=== PATIENT | male | born 1960 | race African-American/Black ===

== ENCOUNTER → 2017-06-09 | Outpatient (CLI) | payer OTHER, BC ==
[~2017-06-09] MED LIST: ADDERALL XR10 MG PO; AMBIEN10 MG PO; CELEBREX100 MG PO; CEPHALEXIN500 M1 PO; CIPRO500 MG PO; COREG 6.256.25 MG/TA PO; COREG6.25 MG PO; ELAVIL25 MG PO; FARXIGA5 PO; FIORICET W/CODE1 CA1 PO; FORTAMET1000 MG PO; LANTUS100 U/ML SC; LEVITRA20 MG PO; LIORESAL 1010 MG/TAB PO; LIP PO; LISINOPRIL/HCTZ1 TA1 PO; LYRICA 75MG CAP75 MG PO; MAXALT MLT10 MG/TAB PO; METHOCARBAMOL500 MG PO; NEURONTIN300 MG PO; NORVASC 10MG10 MG PO; NOVOLOG 100U100 U/M1 SC; OMEGA-31000 MG PO; PERCOCET 325 MG1 TAB PO; PHENERGAN 25 TA25 MG PO; PRILOSEC 20MG20 MG PO; TOPAMAX25 MG PO; VITAMIN D2000 I1 PO; WELLBUTRIN SR150 M1 PO
== END ==
LOC: MHCPAIN 10:57
DX: G89.29 Other chronic pain (principal); M47.817 Spondylosis without myelopathy or radiculopathy, lumbosacral region; M53.3 Sacrococcygeal disorders, not elsewhere classified; M25.551 Pain in right hip; M25.552 Pain in left hip; G62.9 Polyneuropathy, unspecified
CPT/HCPCS: G0463

== ENCOUNTER → 2017-07-08 | Outpatient (CLI) | payer OTHER, BC | LOC: MHCPAIN 09:14 | DX: M47.817 Spondylosis without myelopathy or radiculopathy, lumbosacral region (principal); M46.96 Unspecified inflammatory spondylopathy, lumbar region | CPT/HCPCS: J1040; Q9967 ==

== ENCOUNTER → 2017-08-06 | Outpatient (CLI) | payer OTHER, BC | LOC: MHCPAIN 11:00 | DX: G89.29 Other chronic pain (principal); M47.817 Spondylosis without myelopathy or radiculopathy, lumbosacral region; M54.16 Radiculopathy, lumbar region; M53.3 Sacrococcygeal disorders, not elsewhere classified | CPT/HCPCS: G0463 ==

== ENCOUNTER → 2018-04-12 | Outpatient (CLI) | payer BC, OTHER | LOC: MHCPAIN 13:10 | DX: G89.29 Other chronic pain (principal); M47.817 Spondylosis without myelopathy or radiculopathy, lumbosacral region; M54.16 Radiculopathy, lumbar region; M53.3 Sacrococcygeal disorders, not elsewhere classified; M79.2 Neuralgia and neuritis, unspecified | CPT/HCPCS: G0463 ==

== ENCOUNTER → 2018-04-14 | Outpatient (CLI) | payer BC, OTHER | LOC: MHCPAIN 13:08 | DX: M47.817 Spondylosis without myelopathy or radiculopathy, lumbosacral region (principal); M54.16 Radiculopathy, lumbar region ==

== ENCOUNTER → 2018-04-27 | Outpatient (CLI) | payer BC, OTHER | LOC: MHCPAIN 08:16 | DX: G89.29 Other chronic pain (principal); M47.817 Spondylosis without myelopathy or radiculopathy, lumbosacral region; M53.3 Sacrococcygeal disorders, not elsewhere classified | CPT/HCPCS: G0463 ==

== ENCOUNTER → 2018-05-05 | Outpatient (CLI) | payer BC, OTHER | LOC: MHCPAIN 13:51 | DX: M47.817 Spondylosis without myelopathy or radiculopathy, lumbosacral region (principal); M54.16 Radiculopathy, lumbar region | CPT/HCPCS: J2250; J3010 ==

== ENCOUNTER → 2018-05-12 | Outpatient (CLI) | payer BC, OTHER | LOC: MHCPAIN 09:47 | DX: M47.817 Spondylosis without myelopathy or radiculopathy, lumbosacral region (principal); M54.16 Radiculopathy, lumbar region | CPT/HCPCS: J2250; J3010 ==

== ENCOUNTER → 2018-06-28 | Outpatient (CLI) | payer BC, OTHER | LOC: MHCPAIN 13:09 | DX: G89.29 Other chronic pain (principal); M47.817 Spondylosis without myelopathy or radiculopathy, lumbosacral region; M53.3 Sacrococcygeal disorders, not elsewhere classified | CPT/HCPCS: G0463 ==

== ENCOUNTER 2021-05-23 18:24 | Emergency (ER) | payer BC, OTHER ==
[~2021-05-23] VITALS: Ht 190.5 cm; Wt 95.5 kg
[2021-05-23 18:33] VITALS: TEMP 98.2
[2021-05-23] MEDS ORDERED: CEPHALEXIN500 M1 PO (18:53)
[2021-05-23 19:22] VITALS: BP 134/76; PULSE 80
== END 2021-05-23 19:22 | disposition home or self-care (01) ==
LOC: COL.ER 18:24
DX: T25.122A Burn of first degree of left foot, initial encounter (principal); X10.2XXA Contact with fats and cooking oils, initial encounter

== ENCOUNTER 2021-10-06 07:44 | Emergency (ER) | payer BC, OTHER ==
[~2021-10-06] VITALS: Ht 190.5 cm; Wt 95.5 kg
[2021-10-06 10:25] LABS: STREP SCREEN NEGATIVE
[2021-10-06] MEDS ORDERED: AMOXICILLIN 50500 MG PO (11:00)
[2021-10-06 11:39] VITALS: BP 126/90; PULSE 79; TEMP 98
== END 2021-10-06 11:39 | disposition home or self-care (01) ==
LOC: COL.ER 07:44
PROVIDERS: Emergency Medicine
DX: H61.23 Impacted cerumen, bilateral (principal); H66.92 Otitis media, unspecified, left ear; Z20.822 Contact with and (suspected) exposure to COVID-19